=== PATIENT | female | born 1970 | race Caucasian/White ===

== ENCOUNTER 2018-08-22 09:50 | Observation (INO) ==
[2018-08-22] MEDS ORDERED: ASPIRIN PO ONE (09:57)
[2018-08-22] MEDS ORDERED: NITROGLYCERIN SL PRN (10:08)
[2018-08-22 10:23] LABS: HEMATOCRIT 38.7 % (37.0-47.0); HEMOGLOBIN 12.7 g/dL (12.0-16.0); IMM GRAN# 0.02 X1000 (0.0-0.04); IMM GRAN% 0.5 % (0.0-0.5); LYMPH# 1.77 X1000 (1.2-3.4); LYMPH% 42.4 % (20.5-51.1); MCH 26.6 PG (27-31); MCHC 32.8 g/dL (33-37); MONO# 0.44 X1000 (0.11-0.59); MONO% 10.6 % (1.7-9.3); NEUT# 1.94 X1000 (1.4-6.5); NEUT% 46.5 % (42.2-75.2); PLT 245 X1000 (130-400); RBC 4.78 XMIL (4.2-5.4); RDW 14.5 % (11.5-14.5); WBC 4.17 X1000 (4.8-10.8)
[2018-08-22 10:42] LABS: INR 0.85; PROTIME 12.1 Seconds (11.0-16.0)
[2018-08-22 10:43] LABS: AGAP 14; ALBUMIN 4.2 g/dL (3.5-5.0); ALKALINE PHOSPHATASE 50 U/L (32-104); BUN 12 mg/dL (8-22); CALCIUM 9.7 mg/dL (8.8-10.2); CHLORIDE 106 mmol/L (98-107); CK PROFILE 113 U/L (24-173); COSMO 283; CREATININE 0.7 mg/dL (0.5-0.9); ESTIMATED GFR > 60; GLUCOSE 101 mg/dL (70-104); GOT 20 U/L (10-30); GPT 17 U/L (10-36); POTASSIUM 4.1 mmol/L (3.5-5.1); PTT 24.4 Seconds (22.3-41.8); SODIUM 142 mmol/L (136-145); TCO2 22 mmol/L (25-35); TOTAL PROTEIN 6.7 g/dL (6.3-8.3)
--- NOTE | 2018-08-22 11:11 | PROVIDER DOCUMENTATION ---
This chart was entered by Lubna Guillen Scribe, acting as scribe for Abner Head PA. HPI-Chest Pain - General Chief Complaint: Chest Pain Stated Complaint: CHEST PAIN Time Seen by Provider: 08/22/18 09:57 Source: patient Allergies/Adverse Reactions: Patient Allergies Allergy/AdvReac Type Severity Reaction Status Date / Time amoxicillin Allergy Unknown Verified 08/22/18 09:57 cephalexin [From Keflex] Allergy Unknown Verified 08/22/18 09:57 Sulfa (Sulfonamide Allergy Unknown Verified 08/22/18 09:57 Antibiotics) - History of Present Illness-CP Nature of Presenting Problem: 48 y/o female presents to ED with L sided chest pain radiating to R shoulder, neck, and down L arm onset 45 minutes prior to arrival. Pt is alert and oriented. Location: reports: other (L sided) Chest Pain Radiation: reports: arms (L), neck, shoulders (R) Quality of Pain: reports: sharp Severity in ED: moderate Onset/Duration: 1/2 hour ago, 1 hour ago Timing: still present Context/Activities at Onset: reports: none Modifying Factors: improves with: nothing Associated Symptoms: reports: denies symptoms Nitro Today/Relief: 0.4 mg x 1, provided by ED Aspirin Treatment Today: 325 mg x 1, provided by ED Prior Chest Pain/Cardiac Workup: reports: no prior chest pain, no prior cardiac workup Similar Symptoms Previously?: No Recently Seen Here or By Another Healthcare Provider: No Review of Systems - Adult - REVIEW OF SYSTEMS - ADULT Constitutional: denies: chills, fever Eyes: reports: no symptoms reported Ears, Nose, Mouth & Throat: reports: no symptoms reported Cardiovascular: reports: chest pain. denies: palpitations Respiratory: denies: cough, shortness of breath Gastrointestinal: denies: abdominal pain, diarrhea, nausea, vomiting Genitourinary: reports: no symptoms reported Musculoskeletal: reports: joint pain (R shoulder), neck pain, other (L arm). denies: back pain Integumentary: reports: no symptoms reported Neurological: denies: dizziness/vertigo, seizure Psychiatric: reports: no symptoms reported Endocrine: reports: no symptoms reported Hematologic/Lymphatic: reports: no symptoms reported Allergic/Immunologic: reports: no symptoms reported All Other Systems: Reviewed and Negative Past History - Adult - PAST MEDICAL HISTORY-ADULT Review of Records: reports: Old Records Reviewed, Nursing Assessment Review, Medications Reviewed Major Childhood Illnesses: reports: denies history Cardiovascular: reports: hyperlipidemia Respiratory: reports: asthma - PRIOR SURGERIES/PROCEDURES Surgical/Procedure History: reports: appendectomy, cholecystectomy, hysterectomy , , hernia repair, gastric bypass - IMMUNIZATION STATUS Childhood Immunizations: See Nurse Assessment Flu Vaccine: See Nurse Assessment - FAMILY HISTORY Family History: reviewed, not pertinent - SOCIAL HISTORY Smoking: quit greater than 1 year Substance Use: none/never Alcohol Use Frequency: never Living Situation: family Physical Exam-General - PHYSICAL EXAM-ADULT Initial Vital Signs Reviewed: Yes - CONSTITUTIONAL General Appearance: appears well, alert, no apparent distress - EYES Eyes: PERRL/EOMI, pink conjunctivae - HEAD, EARS, NOSE, MOUTH & THROAT HENMT: normocephalic/atraumatic, moist mucous membranes, normal ENT inspection - NECK Neck: non-tender, full range of motion - RESPIRATORY Respiratory: chest non-tender, lungs clear, normal breath sounds - CARDIOVASCULAR Cardiovascular: normal peripheral pulses, regular rate, rhythm - GASTROINTESTINAL (ABDOMEN) Abdominal Exam: normal bowel sounds, non tender, soft - MUSCULOSKELETAL Back Exam: normal inspection, no CVA tenderness Extremity: normal range of motion, non-tender, normal gait - SKIN Integumentary: normal color, warm/dry - NEUROLOGIC Neurologic: grossly normal - PSYCHIATRIC Psych/Mental Status: normal mood/affect, normal thought content, normal thought process Progress - PLAN OF CARE/RESULTS Progress/Plan/Lab Results: Vital Signs - 8 hr 08/22/18 09:52 Temperature 98.8 F Pulse Rate 78 Respiratory Rate 18 Blood Pressure 141/74 O2 Sat by Pulse Oximetry 100 Laboratory Results - last 24 hr 08/22/18 08/22/18 08/22/18 10:14 10:14 10:14 WBC 4.17 L RBC 4.78 Hgb 12.7 Hct 38.7 MCV 81.0 MCH 26.6 L MCHC 32.8 L RDW Std Deviation 14.5 Plt Count 245 MPV 10.0 Immature Gran % (Auto) 0.5 Neut % (Auto) 46.5 Lymph % (Auto) 42.4 [place] % (Auto) 10.6 H Eos % (Auto) 0.0 Baso % (Auto) 0.0 Immature Gran # (Auto) 0.02 Neut # (Auto) 1.94 Lymph # (Auto) 1.77 [place] # (Auto) 0.44 Eos # (Auto) 0.00 Baso # (Auto) 0.00 PT INR PTT (Actin FS) Sodium 142 Potassium 4.1 Chloride 106 Carbon Dioxide 22 L Anion Gap 14 BUN 12 Creatinine 0.7 Estimated GFR/1.73 m2 > 60 BUN/Creatinine Ratio 17 Glucose 101 Calculated Osmolality 283 Calcium 9.7 Total Bilirubin 0.40 AST 20 ALT 17 Alkaline Phosphatase 50 Creatine Kinase 113 Troponin T Iyv-I-Vwqyvfwdgcm Pept 62 Total Protein 6.7 Albumin 4.2 Globulin 3.0 Albumin/Globulin Ratio 2.0 08/22/18 08/22/18 10:14 10:14 WBC RBC Hgb Hct MCV MCH MCHC RDW Std Deviation Plt Count MPV Immature Gran % (Auto) Neut % (Auto) Lymph % (Auto) [place] % (Auto) Eos % (Auto) Baso % (Auto) Immature Gran # (Auto) Neut # (Auto) Lymph # (Auto) [place] # (Auto) Eos # (Auto) Baso # (Auto) PT 12.1 INR 0.85 PTT (Actin FS) 24.4 Sodium Potassium Chloride Carbon Dioxide Anion Gap BUN Creatinine Estimated GFR/1.73 m2 BUN/Creatinine Ratio Glucose Calculated Osmolality Calcium Total Bilirubin AST ALT Alkaline Phosphatase Creatine Kinase Troponin T < 0.010 Xnr-P-Fjrqplqpvog Pept Total Protein Albumin Globulin Albumin/Globulin Ratio Orders Category Date Time Status Admit - [facility] Routine AdmDCTranf 08/22/18 11:10 Active Activity - Bed Rest with BRP ORDERED Care 08/22/18 11:10 Active Cardiac Monitoring DIRECTED Care 08/22/18 09:58 Active Oxygen Therapy- ED Nursing DIRECTED Care 08/22/18 09:58 Active Saline Loc NOW Care 08/22/18 09:58 Active Vital Signs Order ROUTINE Care 08/22/18 11:10 Active Z-Document. for Tele Applied ORDERED Care 08/22/18 11:10 Active Heart Healthy Diet Diet 08/22/18 11:10 Active CHEST-2 VIEWS [RAD] Stat Exams 08/22/18 09:58 Taken CBC WITH ELECTRONIC DIFF [HEME] Stat Lab 08/22/18 10:14 Completed CK PROFILE [SP CHEM] Stat Lab 08/22/18 10:14 Completed COMPREHENSIVE METABOLIC PANEL [CHEM] Stat Lab 08/22/18 10:14 Completed PRO B-NATRIURETIC PEPTIDE Stat Lab 08/22/18 10:14 Completed PROTIME WITH INR [COAG] Stat Lab 08/22/18 10:14 Completed PTT [COAG] Stat Lab 08/22/18 10:14 Completed TROPONIN T Stat Lab 08/22/18 10:14 Completed Aspirin Med 08/22/18 09:57 Discontinued 325 mg PO NOW ONE Nitroglycerin Sl [Nitroglycerin] Med 08/22/18 10:08 Active 0.4 mg SL Q5M PRN PRN CP/SOB/Palp >45 yrs of Age Stat Oth 08/22/18 09:57 Ordered Telemetry [OM.EQ] Routine Oth 08/22/18 11:10 Active EKG [EKG] Stat Ther 08/22/18 09:58 Ordered Transfer/Admit Order [TRANSFER] Routine Transfer 08/22/18 11:10 Ordered HEART SCORE OF 5. Pain improved c Nitro. Will admit for CP r/o. Result Diagrams: 08/22/18 10:14 08/22/18 10:14 - EKG 1 Time of EKG reading by physician:: 09:54 EKG Read and Signed by:: Ramon Gordillo EKG Interpretation (*Must complete 3 of following elements*): Normal Rate: 77 Rhythm: NSR w/ sinus arrhythmia [place]: normal QRS: normal [place] Interval: normal ST Wave: normal - XRAY 1 XRAY Study: Chest Impression: See EMR Report - CONSULTS/PCP/HOSPITALIST Notification #1 *Consult/PCP/Hospitalist*: Dr. Saldivar Time Discussed: 11:03 Reason/Comments: Chest pain Consult Disposition: Admit Departure - Departure Date of Disposition Decision: 08/22/18 Time of Disposition Decision: 11:05 DIAGNOSIS: Chest pain Qualifiers: Chest pain type: unspecified Qualified Code(s): R07.9 - Chest pain, unspecified Disposition: ADMITTED INPATIENT 09 Certified Medical Emergency: Emergent Condition: Stable Additional Freetext Instructions: ED Follow Up Instructions: You have been treated by a care provider in the Emergency Department. These instructions are being provided to you so you can have an understanding of how to care for yourself upon discharge. Upon discharge from the Emergency Department, you are responsible for making arrangements for follow-up care by a physician of your choice. Take all prescribed medications as directed. Return to the Emergency Department immediately for any new or worsening symptoms. You may call the Physician Referral phone number at [phone] to obtain a list of Physicians who are taking new patients. Referrals and Follow-Ups: Rob Cerrato MD [Primary Care Provider] - Discharge Education: Nonspecific Chest Pain, [id number] - Critical Care Note This patient required my direct & personal management of CC.: No Attestation - Physician/ TERRIE Attestation Patient care was provided by Advanced Practice Provider:: Yes Advanced Practice Provider:: Abner Head Advanced Practice Provider documentation review:: The Mid-level provider documentation, treatment plan and medical decision making was reviewed by the physician who agrees with all treatment and medical decision making by the MLP. The physician spent face to face time with patient:: No Advanced Practice Provider documentation review:: Supervising physician onsite and consulted in the evaluation and care of this patient. The physician did not have a face to face encounter with the patient. This chart was documented by the indicated scribe, (Lubna Guillen Scribe) and accurately reflects the services I performed and decisions made by [employer] Steven Wesley, PA, as attested by the provider's signature.
--- NOTE | 2018-08-22 12:21 | ED EKG INTERP ---
This chart was entered by Lubna Guillen Scribe, acting as scribe for Ramon Gordillo MD. EKG Interpretation - EKG Time of EKG reading by physician:: 12:03 EKG Read and Signed by:: Ramon Gordillo EKG Interpretation (*Must complete 3 of following elements*): Normal (Borderline ) Rate: 69 Rhythm: NSR [place]: normal QRS: other (low volatge QRS) [place] Interval: normal ST Wave: normal Attestation - Physician/ TERRIE Attestation Patient care was provided by Advanced Practice Provider:: Yes Advanced Practice Provider:: Abner Head Advanced Practice Provider documentation review:: The Mid-level provider documentation, treatment plan and medical decision making was reviewed by the physician who agrees with all treatment and medical decision making by the MLP. The physician spent face to face time with patient:: No Advanced Practice Provider documentation review:: Supervising physician onsite and consulted in the evaluation and care of this patient. The physician did not have a face to face encounter with the patient. This chart was documented by the indicated scribe, (Lubna Guillen Scribe) and accurately reflects the services I performed and decisions made by me, Ramon Gordillo MD, as attested by the provider's signature.
--- NOTE | 2018-08-22 15:02 | HISTORY AND PHYSICAL ---
DATE OF ADMISSION: 08/22/2018. PRIMARY CARE PHYSICIAN: Dr. Rob Cerrato. CHIEF COMPLAINT: Left-sided chest pain radiating to the left arm, neck and across to her right shoulder with some associated shortness of breath and diaphoresis that began approximately 45 minutes prior to arriving. HISTORY OF PRESENT ILLNESS: This is a [id number]-[id number]- female who presents to [facility], ER with complaints of left-sided chest pain that radiated across to her right shoulder, down her left arm and to her neck with some associated shortness of breath and diaphoresis that began approximately 45 minutes to an hour prior to arriving. Her work up in the emergency room shows two cardiac enzymes were negative, two sets. Her EKG showed normal sinus rhythm at 69. She is going to be admitted for further evaluation and treatment. PAST MEDICAL HISTORY: Hyperlipidemia and asthma. PAST SURGICAL HISTORY: Appendectomy, cholecystectomy, , hysterectomy, hernia and gastric bypass. FAMILY HISTORY: Reviewed and noncontributory. SOCIAL HISTORY: She currently lives with family. Denies any tobacco, alcohol or illicit drug use. ALLERGIES: AMOXICILLIN, CEPHALEXIN AND SULFA DRUGS. HOME MEDICATIONS: She does not have any medications listed on a routine basis at this time, but I will have nursing to update and confirm that she is not on any or she is, we will review those once they are confirmed and restart as appropriate. LABORATORY DATA: White blood cell count 4.17, hemoglobin 12.7, hematocrit 38.7 and platelets 245. PT/INR 12.0 and 0.85. Sodium 142, potassium 4.1, chloride 106, CO2 22, BUN 12, creatinine 0.7, glucose 101. Cardiac enzymes x2 sets were negative. EKG showed normal sinus rhythm at 69. Chest x-ray is pending. REVIEW OF SYSTEMS: She denied any fever, chills, blurred vision or dizziness. She was positive for some chest pain that radiated down her left arm, neck and across to her right shoulder, some shortness of breath and diaphoresis. Denied any abdominal pain, constipation, diarrhea, burning or hurting with urination. PHYSICAL EXAMINATION: VITAL SIGNS: On arrival, she had a temperature of 98.8, pulse 78, respiratory rate 18 and blood pressure 141/74. Saturation was 100% on room air. GENERAL: This is a 62-qica-acl- female who is lying in the bed. She answers questions appropriately. HEENT: Normocephalic, atraumatic. Normal ENT inspection. Oropharynx and nares are clear. Pupils are equal, round and reactive to light and accommodation. Extraocular movements are intact. NECK: Normal inspection. Normal range of motion. LUNGS: Clear to auscultation bilaterally with equal lung expansion and chest wall movement. HEART: Regular rate and rhythm. No murmurs, rubs or gallops. ABDOMEN: Soft and nontender. Nondistended. Bowel sounds are present x4 quadrants. MUSCULOSKELETAL: She has 5/5 strength x4 extremities. NEUROLOGICAL: Cranial nerves II through XII appear grossly intact. ASSESSMENT: 1. Chest pain. 2. Shortness of breath. PLAN: She is being admitted to the medical unit at [place]. She will be placed on telemetry and a healthy heart diet. We will obtain one more set of cardiac enzymes at 4:00 p.m. today to complete her serial enzymes. Her chest x-ray is pending. She was given an aspirin 325 mg p.o. x1 in the emergency room. We will continue that daily. We will again have nursing update and confirm that she is or is not on any home medications. Further orders after seen by attending. Dictated by CHARITY Powell for Kelly Saldivar MD cc: CHARITY Powell MD Brian R. James, MD
--- NOTE | 2018-08-22 15:04 | Diag Imaging Result Doc PS360 ---
EXAM: CHEST-2 VIEWS INDICATION: cp TECHNIQUE: 2 views COMPARISON: None. FINDINGS: The lungs are grossly clear. There is no discrete pleural fluid collection or pneumothorax. The cardiomediastinal silhouette and central vasculature are grossly unremarkable. IMPRESSION: No evidence of acute pathology by plain radiograph. Electronically signed by Samir Mendez 08/22/2018 3:02 PM
--- NOTE | 2018-08-22 18:33 | EKG Report ---
Test Performed on : 08/22/2018 12:03:05 PM Test Reason : cp Blood Pressure : / mmHG Vent. Rate : 074 BPM Atrial Rate : 075 BPM P-R Int : 000 ms QRS Dur : 088 ms QT Int : 412 ms P-R-T Axes : 000 036 009 degrees QTc Int : 457 ms Accelerated Junctional rhythm. with premature ventricular complexes. or fusion complexes Low voltage QRS Nonspecific T wave abnormality Abnormal ECG When compared with ECG of 22-AUG-2018 09:54, (Unconfirmed) Junctional rhythm. has replaced Sinus rhythm. Unconfirmed Result
--- NOTE | 2018-08-22 18:33 | EKG Report ---
Test Performed on : 08/22/2018 09:54:41 AM Test Reason : repeat Blood Pressure : / mmHG Vent. Rate : 077 BPM Atrial Rate : 077 BPM P-R Int : 138 ms QRS Dur : 094 ms QT Int : 410 ms P-R-T Axes : 056 043 020 degrees QTc Int : 463 ms Normal sinus rhythm. with sinus arrhythmia. Normal ECG No previous ECGs available Unconfirmed Result
--- NOTE | 2018-08-22 23:40 | HISTORY AND PHYSICAL ---
ADDENDUM: I saw the patient [id number], and fully agree with the assessment and plan of the nurse practitioner, Precious Vyas. The patient is a 48-year-old lady who presented here to the emergency room with left-sided chest pain. She has a history of dyslipidemia, but no history of hypertension or diabetes is there. She is not a smoker, although she has a very strong family history of premature coronary artery disease. Her mom was diagnosed as having coronary artery disease at age 42, and her father was diagnosed as having coronary artery disease at age 50. Her 50-year-old brother already had some issues with his heart, and has coronary artery disease. In view of a strong family history, we are going to rule out any acute myocardial ischemic event, but will schedule her to have a Lexiscan stress study on Friday morning. Will also involve Cardiology, and get a Cardiology consultation for further evaluation. cc: Kelly Saldivar MD
--- NOTE | 2018-08-23 00:50 | CARDIOLOGY CONSULTATION ---
DATE: 08/22/2018 CHIEF COMPLAINT: Chest pain. HISTORY OF PRESENT ILLNESS: Ms Rendon is a 48-year-old female who presents with left-sided chest pain that began in a very discrete location in her left chest, radiated up into the left shoulder area and down the arm. This began while walking down the stairs. Lasted for around an hour or so. There was relief with nitroglycerin. She had no recurrence of the pain. She had no further aggravation of the pain with exertion. She did have a somewhat positional component to it after it initiated. PAST MEDICAL HISTORY: Significant for hyperlipidemia which we do not have records of and asthma. SOCIAL HISTORY: She does not smoke. FAMILY HISTORY: Her mother and father both had early coronary disease. REVIEW OF SYSTEMS: A 10 system review of systems is negative except for those things mentioned in HPI. PHYSICAL EXAMINATION: She is afebrile. Heart rate is 79, blood pressure is 123/69.General: She is in no acute distress. HEENT: Oropharynx is moist. Normal dentition. Eye examination shows pink conjunctivae. White sclerae. Neck: Examination shows no obvious thyromegaly or thyroid tenderness. Cardiovascular: She is in a regular rate and rhythm. She has no murmurs. She has no S3. She has no lower extremity edema. Chest: Clear bilaterally. No increased work of breathing. Abdomen: Soft, nontender, nondistended. She has no obvious organomegaly. Skin: Warm and dry throughout without any rashes. Neurological: Moving all extremities well. She has no lateralizing deficits. Psychiatric: Alert and oriented, pleasant. Normal mood and affect. PERTINENT DATA: Chest x-ray is unremarkable for any acute pathology. EKG reviewed by me shows sinus rhythm, no ischemia, no injury. White count 4.1, hematocrit 38, platelet count is 245,000. Her sodium is 142, potassium 4.1, BUN 12, creatinine 0.7. Cardiac enzymes are negative times multiple sets. Her total cholesterol is 232, LDL 132 with an HDL of 116. ASSESSMENT: Ms Rendon is a 48-year-old female who presented with chest pain. PLAN: She is relatively low risk by heart score. It does not appear that she has true hyperlipidemia as her HDL is 116 and she has limited risk factors. She does not smoke. She may be obsed overnight and if these are unremarkable then she can likely be discharged in the morning for an expedited outpatient stress test. At this time I would not recommend performing an inpatient stress as I believe this could be done as an outpatient in the near future. cc: Sergo Head MD
--- NOTE | 2018-08-23 06:28 | EKG Report ---
Test Performed on : 08/23/2018 06:20:43 AM Test Reason : cp Blood Pressure : / mmHG Vent. Rate : 070 BPM Atrial Rate : 070 BPM P-R Int : 156 ms QRS Dur : 090 ms QT Int : 418 ms P-R-T Axes : 054 053 029 degrees QTc Int : 451 ms Normal sinus rhythm. Normal ECG When compared with ECG of 22-AUG-2018 12:03, (Unconfirmed) No significant change was found Unconfirmed Result
[2018-08-23] MEDS ORDERED: ASPIRIN PO SCH (09:00)
--- NOTE | 2018-08-23 11:44 | DISCHARGE SUMMARY ---
ADMISSION DATE: 08/22/2018 DISCHARGE DATE: ADDENDUM: The patient is 48 years old with some atypical chest pain. The only risk factor she has is family history, and she does have some early family history, but all her workup has been negative including EKGs. Dr. Head has evaluated the patient and felt she is stable for discharge with an outpatient stress test. We will pursue an outpatient stress test. We are going to try to get an echo prior to discharge her EKG was interpreted as accelerated junctional, but it is not accelerated junctional. There are clearly P waves. She may have a PAC or two, but in any case we will discharge her on baby aspirin and follow up with her regular doctor and we will try to get her in for a stress test as soon as possible this week. cc: Isiah Cavazos MD
[2018-08-23 14:19] VITALS: BP 110/65
--- NOTE | 2018-08-24 04:23 | DISCHARGE SUMMARY ---
ADMISSION DATE: 08/22/2018 DISCHARGE DATE: 08/23/2018 PRIMARY CARE PHYSICIAN: Dr. Rob Cerrato. ADMISSION DIAGNOSES: 1. Chest pain. 2. Shortness of breath. DISCHARGE DIAGNOSES: 1. Chest pain, resolved. 2. Shortness of breath. SUMMARY OF FINDINGS: This is a 48-year-old female who presented to the emergency room with complaints of left-sided chest pain that radiated across to her right shoulder, down her left arm, and to her neck with some associated shortness of breath and diaphoresis that began approximately 45 minutes prior to arrival. She was admitted. Her workup showed cardiac enzymes x3 sets were negative. We had Cardiology to consult because she does have a strong family history of heart disease. We did an echocardiogram today that was read as normal by Cardiology, and so it was felt that she could safely be discharged home. She was given an order to have an outpatient stress test done in the morning and to be n.p.o. after midnight. DISCHARGE MEDICATIONS: Aspirin 81 mg p.o. daily #30 with 1 refill. FOLLOWUP: She will need to follow up with her primary care physician in 1 to 2 weeks. Call the office for an appointment and again, she has a myocardial perfusion scan scheduled outpatient for in the morning. TIME SPENT: 35 minute discharge. Dictated by CHARITY Powell for Isiah Cavazos MD cc: CHARITY Powell MD Brian R. James, MD
--- NOTE | 2018-08-24 14:22 | ECHO REPORT ---
ORDER DATE: 08/23/2018 ECHOCARDIOGRAM: INDICATION: Chest pain. FINDINGS: 1. Right atrium appears normal in size. 2. Mild tricuspid regurgitation. RV systolic pressure 26. 3. Normal RV size and systolic function. 4. Trace pulmonic insufficiency. 5. Normal left atrial size at 3.5 cm. 6. No mitral valve prolapse. Mild mitral regurgitation. 7. Normal LV size, end-diastolic dimension of 4.2 cm. Normal wall thicknesses with a posterior and interventricular septal wall thickness of 0.9 cm each. Normal LV systolic function. Estimated EF of 55% to 60% with normal wall motion. 8. Aortic valve opens well and is trileaflet. No evidence of stenosis or insufficiency. 9. Aorta appears normal in visualized segments. 10. No pericardial effusion seen. 11. Normal LV systolic function. Estimated EF in the 55% to 60% range. cc: Sergo Head MD
== END 2018-08-23 14:30 | disposition home or self-care (01) ==
LOC: P.ED 09:50 → INTOOBSV 09:51 → P.EDIPHOLD 09:51
PROVIDERS: ATTEND Internal Medicine
CPT/HCPCS: 71020; 71046; 80053; 80061; 82550; 83721; 83880; 84484; 85025; 85610; 85730; 93005; 93306; 99285; A9270